=== PATIENT | female | born 1945 | race Caucasian/White ===

== ENCOUNTER → 2019-02-18 | Day surgery (SDC) | payer MEDICARE ==
[2019-02-17 15:01] VITALS: BMI 26.1
[~2019-02-18] MED LIST: Cyclopentolate 1% Opth Drop 2 ML BOT ONE; EPINEPHrine 0.3 MG in Ophthalmic Irrigation Solution 500 ML IV SCH; Fentanyl 100 MCG/2 ML VIAL ONE; Midazolam HCl 2 mg/2 ml Vial ONE; PROPOFOL 20 ML ONE; Phenylephrine 2.5% Ophth Soln 5 ML BOT ONE
--- NOTE | 2019-02-18 12:11 | OP ---
DATE OF PROCEDURE: 02/18/2019 PRINCIPAL PREOPERATIVE DIAGNOSIS: Epiretinal membrane, right eye. POSTOPERATIVE DIAGNOSIS: Epiretinal membrane, right eye. NAME OF PROCEDURES PERFORMED: 1. 25-gauge pars plana vitrectomy, right eye. 2. Epiretinal membrane/internal limiting membrane removal, right eye. ESTIMATED BLOOD LOSS: None. SPECIMENS REMOVED: None. COMPLICATIONS: None. ANESTHESIA: MAC with retrobulbar block. SUMMARY OF OPERATION: The patient was identified in the preoperative holding area, where the correct eye being the right eye was marked for surgery. The patient was taken to the operating room, where MAC anesthesia was induced. A retrobulbar block was administered to the right eye. The block consisted of 1:1 ratio of 4% lidocaine and 0.75% Marcaine. A total of 5 mL was administered. The right eye was then prepped and draped in the usual sterile ophthalmic fashion for surgery. A wire lid speculum was placed. A standard 25-gauge pars plana vitrectomy platform was fashioned with trocars placed approximately 3.5 mm from the limbus. The infusion was noted to be within the vitreous cavity prior to being turned on to the infusion pressure of 30 mmHg. The light pipe and micro vitrector were introduced in the eye under visualization of RESIGHT viewing system. A careful core vitrectomy was performed followed by injection of Kenalog. Subsequently, a gentle posterior vitreous detachment was created followed by completion of peripheral shave vitrectomy. Following vitrectomy, ICG dye was used to stain the internal limiting membrane. Using the [place] ILM forceps and internal limiting membrane/epiretinal membrane complex removal was performed in a circumferential fashion about the fovea. The peel extended approximately 2 disk diameters in radius circumferentially. Following peeling, the micro vitrector was reintroduced in the eye to remove any residual vitreous debris. A 360-degree scleral depressed exam of the periphery revealed no defects. The cannulas were sequentially removed and all sclerotomies were noted to be watertight. The wire lid speculum was removed followed by application of TobraDex ophthalmic ointment and a light patch and shield. The patient tolerated the procedure well and was taken to the outpatient recovery in good condition. Job ID: [id number]
== END ==
LOC: SDC 07:21
PROVIDERS: ATTEND Ophthalmology Retina Specialist
PROC: 08T43ZZ Resection of Right Vitreous, Percutaneous Approach (ICD-10-PCS; principal; 2019-02-18)
PROC: 08NE3ZZ Release Right Retina, Percutaneous Approach (ICD-10-PCS; 2019-02-18)
DX: H35.371 Puckering of macula, right eye (principal); E03.9 Hypothyroidism, unspecified; Z88.8 Allergy status to other drugs, medicaments and biological substances; Z91.018 Allergy to other foods
CPT/HCPCS: J0171; J2250; J2704; J3010

== ENCOUNTER 2021-10-21 04:11 | Inpatient (IN) | payer MEDICARE ==
[2021-10-21 05:57] VITALS: BMI 26.9
[2021-10-21] MEDS ORDERED: Heparin 25,000 units/D5W 500 ML IVPB SCH (06:15)
[2021-10-21 07:13] LABS: Platelet Count 281 thou/uL (130-400)
[2021-10-21] MEDS ORDERED: Ondansetron ODT 4 MG TAB PO PRN (07:15)
[2021-10-21] MEDS ORDERED: Senokot S 8.6-50 MG TAB PO PRN (07:15)
[2021-10-21] MEDS ORDERED: Calcium Carbonate 500 MG ChewTAB PO PRN (07:15)
[2021-10-21] MEDS ORDERED: Ondansetron PF 4 MG/2 ML Vial IVP PRN (07:15)
[2021-10-21] MEDS ORDERED: Bisacodyl 5 MG TAB PO PRN (07:15)
[2021-10-21] MEDS ORDERED: Bisacodyl 10 MG SUPP PR PRN (07:15)
[2021-10-21] MEDS ORDERED: Levothyroxine Sodium 75 MCG TAB PO SCH (07:30)
[2021-10-21 07:52] LABS: #Eosinphils 0.1 thou/uL (0.0-0.7); #Monocytes 0.7 thou/uL (0.11-0.59); #Neutrophils 6.1 thou/uL (1.40-6.50); %Basophils 0.4 % (0.0-1.0); %Lymphocytes 22.2 % (21.0-51.0); %Monocytes 7.8 % (0.0-10.0); %Neutrophils 68.7 % (42.0-75.0); Hemoglobin 11.8 g/dL (12.0-16.0); Mean Corpuscular HGB CONC 33.5 g/dL (32.0-36.0); Mean Corpuscular Hemoglobin 32.5 pg (27.0-31.0); Mean Platelet Volume 6.8 fL (7.4-10.4); Platelet Count 293 thou/uL (130-400); RBC Distribution Width 11.7 % (11.5-14.5); Red Blood Cell (RBC) Count 3.63 mill/uL (4.20-5.40); White Blood Cell (WBC) Count 8.9 thou/uL (4.8-10.8)
[2021-10-21 08:13] LABS: Hemoglobin A1c 5.6 % (4.0-6.0)
[2021-10-21 08:14] LABS: ALT (SGPT) 18 U/L (8-55); AST (SGOT) 37 U/L (5-34); Albumin 4.2 g/dL (3.4-4.8); Alkaline Phosphatase 42 U/L (40-110); Anion Gap 14 mmol/L (10-20); BUN (Urea Nitrogen) 21 mg/dL (9.8-20.1); Bilirubin, Total 0.9 mg/dL (0.2-1.2); Calc. Creatinine Clearance 65 mL/min (70-130); Calcium 9.2 mg/dL (7.8-10.44); Carbon Dioxide 23 mmol/L (23-31); Cardiac Risk 4.5 (Less than 4.5); Chloride 103 mmol/L (98-107); Cholesterol 202 mg/dl (< 200 Desired); Globulin 2.8 g/dL (2.4-3.5); Glucose 114 mg/dL (83-110); HDL Cholesterol 45 mg/dL (>60 Neg Risk); LDL Cholesterol, Calculated 115 mg/dL; Sodium 136 mmol/L (136-145); Triglycerides 209 mg/dL (Less than 150)
[2021-10-21 08:23] LABS: Troponin I 2.512 ng/mL (< 0.028)
[2021-10-21] MEDS: Heparin 10,000 UNITS/ 10 ML VIAL SLOW IVP SCH ×2 (09:19→22:38)
[2021-10-21] MEDS: Famotidine 20 MG TAB PO SCH ×2 (09:20→21:10)
[2021-10-21] MEDS: Famotidine/PF 20 mg/2ml Vial SLOW IVP SCH ×2 (09:20→23:08)
[2021-10-21] MEDS ORDERED: Sodium Chloride 0.9% 1,000 ML IV SCH (09:30)
[2021-10-21 11:04] LABS: Critical Call Chem Troponin I RESULT DECREASING; Troponin I 2.173 ng/mL (< 0.028)
[2021-10-21] MEDS ORDERED: Communication Order-Pharmacy FS SCH (19:00)
[2021-10-21] MEDS: Acetaminophen 325 MG TAB PO PRN (21:10)
[2021-10-21] MEDS: Nitroglycerin 2% Ointment 1 INCH/1 GM Packet TOP SCH (21:10)
[2021-10-21] MEDS: Atorvastatin Calcium 40 MG TAB PO SCH (21:10)
[2021-10-21] MEDS: Metoprolol Tartrate 25 MG TAB PO SCH (21:10)
[2021-10-22 05:04] LABS: #Eosinphils 0.2 thou/uL (0.0-0.7); #Lymphocytes 2.3 thou/uL (1.20-3.40); #Monocytes 0.8 thou/uL (0.11-0.59); #Neutrophils 5.6 thou/uL (1.40-6.50); %Basophils 0.5 % (0.0-1.0); %Eosinophils 1.7 % (0.0-10.0); %Lymphocytes 25.8 % (21.0-51.0); %Monocytes 8.8 % (0.0-10.0); %Neutrophils 63.2 % (42.0-75.0); Hemoglobin 10.8 g/dL (12.0-16.0); Mean Corpuscular Hemoglobin 32.2 pg (27.0-31.0); Mean Corpuscular Volume 97.6 fL (78.0-98.0); Mean Platelet Volume 6.9 fL (7.4-10.4); Platelet Count 299 thou/uL (130-400); RBC Distribution Width 11.9 % (11.5-14.5); Red Blood Cell (RBC) Count 3.37 mill/uL (4.20-5.40); White Blood Cell (WBC) Count 8.9 thou/uL (4.8-10.8)
[2021-10-22] MEDS: Nitroglycerin 2% Ointment 1 INCH/1 GM Packet TOP SCH (05:24)
[2021-10-22] MEDS: Levothyroxine Sodium 75 MCG TAB PO SCH (05:24)
[2021-10-22] MEDS: Metoprolol Tartrate 25 MG TAB PO SCH (05:24)
[2021-10-22 05:26] LABS: ALT (SGPT) 18 U/L (8-55); AST (SGOT) 38 U/L (5-34); Alkaline Phosphatase 41 U/L (40-110); Anion Gap 13 mmol/L (10-20); BUN (Urea Nitrogen) 13 mg/dL (9.8-20.1); Bilirubin, Direct 0.3 mg/dL (0.1-0.3); Bilirubin, Total 0.8 mg/dL (0.2-1.2); Calc. Creatinine Clearance 66 mL/min (70-130); Calcium 8.9 mg/dL (7.8-10.44); Carbon Dioxide 25 mmol/L (23-31); Chloride 105 mmol/L (98-107); Glucose 109 mg/dL (83-110); Magnesium 2.2 mg/dL (1.6-2.6); Potassium 3.8 mmol/L (3.5-5.1); Protein, Total 6.5 g/dL (5.8-8.1); Sodium 139 mmol/L (136-145)
[2021-10-22] MEDS ORDERED: Sodium Chloride 0.9% 1,000 ML IV SCH ×2 (06:00→09:50)
[2021-10-22] MEDS ORDERED: Heparin 10,000 UNITS/ 10 ML VIAL ONE (08:17)
[2021-10-22] MEDS ORDERED: Lidocaine 1% (PF) 30 ML VIAL ONE (08:17)
[2021-10-22] MEDS ORDERED: Fentanyl 100 MCG/2 ML VIAL ONE (09:02)
[2021-10-22] MEDS ORDERED: Midazolam HCl 2 mg/2 ml Vial ONE (09:02)
[2021-10-22] MEDS ORDERED: Protamine Sulfate 50 MG/5 ML VIAL ONE (09:21)
[2021-10-22] MEDS ORDERED: Nitroglycerin 0.4 MG TAB (25 Tab Bottle) SL PRN (09:48)
[2021-10-22] MEDS ORDERED: Sodium Chloride 0.9% 200 ML IV PRN (09:48)
[2021-10-22] MEDS ORDERED: Acetaminophen/Codeine 30-300mg Tablet PO PRN ×2 (09:48)
[2021-10-22] MEDS: Aspirin 81 mg Enteric Coated Tablet PO SCH (10:53)
[2021-10-22] MEDS: Famotidine 20 MG TAB PO SCH ×2 (10:53→21:32)
[2021-10-22] MEDS: Famotidine/PF 20 mg/2ml Vial SLOW IVP SCH ×2 (10:54→19:40)
[2021-10-22] MEDS ORDERED: Iopamidol 370 76% 50 ML VIAL FS ONE (13:26)
[2021-10-22] MEDS ORDERED: Iopamidol 370 76% 100 ML VIAL ONE (13:26)
[2021-10-22] MEDS: Carvedilol 3.125 MG TAB PO SCH (16:55)
[2021-10-22] MEDS: Acetaminophen 325 MG TAB PO PRN (21:32)
[2021-10-22] MEDS: Atorvastatin Calcium 40 MG TAB PO SCH (21:32)
[2021-10-23 04:25] LABS: #Eosinphils 0.1 thou/uL (0.0-0.7); #Lymphocytes 1.5 thou/uL (1.20-3.40); #Monocytes 0.7 thou/uL (0.11-0.59); #Neutrophils 4.7 thou/uL (1.40-6.50); %Basophils 0.6 % (0.0-1.0); %Eosinophils 1.8 % (0.0-10.0); %Lymphocytes 21.6 % (21.0-51.0); %Monocytes 9.9 % (0.0-10.0); %Neutrophils 66.1 % (42.0-75.0); Mean Corpuscular HGB CONC 33.8 g/dL (32.0-36.0); Mean Corpuscular Hemoglobin 32.9 pg (27.0-31.0); Mean Corpuscular Volume 97.2 fL (78.0-98.0); Mean Platelet Volume 7.1 fL (7.4-10.4); Platelet Count 242 thou/uL (130-400); RBC Distribution Width 11.6 % (11.5-14.5); Red Blood Cell (RBC) Count 3.04 mill/uL (4.20-5.40); White Blood Cell (WBC) Count 7.1 thou/uL (4.8-10.8)
[2021-10-23 04:44] LABS: Anion Gap 13 mmol/L (10-20); BUN (Urea Nitrogen) 15 mg/dL (9.8-20.1); Calc. Creatinine Clearance 71 mL/min (70-130); Calcium 8.5 mg/dL (7.8-10.44); Carbon Dioxide 22 mmol/L (23-31); Chloride 106 mmol/L (98-107); Glucose 93 mg/dL (83-110); Magnesium 2.1 mg/dL (1.6-2.6); Potassium 3.6 mmol/L (3.5-5.1); Sodium 137 mmol/L (136-145)
[2021-10-23] MEDS: Levothyroxine Sodium 75 MCG TAB PO SCH (05:38)
[2021-10-23] MEDS: Famotidine 20 MG TAB PO SCH (09:14)
[2021-10-23] MEDS: Famotidine/PF 20 mg/2ml Vial SLOW IVP SCH (09:14)
[2021-10-23] MEDS: Carvedilol 3.125 MG TAB PO SCH (09:14)
[2021-10-23] MEDS: Aspirin 81 mg Enteric Coated Tablet PO SCH (09:14)
[2021-10-23 12:15] VITALS: BP 133/61; TEMP 98.1
== END 2021-10-23 16:29 | disposition home or self-care (01) | DRG 281 ==
LOC: 2NO 04:11 → OBSVTOIN 10-22 11:04
PROVIDERS: ADMIT Student in an Organized Health Care Education/Training Program; ATTEND Internal Medicine
PROC: 4A023N7 Measurement of Cardiac Sampling and Pressure, Left Heart, Percutaneous Approach (ICD-10-PCS; principal; 2021-10-22)
PROC: B2151ZZ Fluoroscopy of Left Heart using Low Osmolar Contrast (ICD-10-PCS; 2021-10-22)
DX: I51.81 Takotsubo syndrome (principal); I21.4 Non-ST elevation (NSTEMI) myocardial infarction; G45.3 Amaurosis fugax; Z23 Encounter for immunization; Z20.822 Contact with and (suspected) exposure to COVID-19; I10 Essential (primary) hypertension; E78.5 Hyperlipidemia, unspecified; D50.9 Iron deficiency anemia, unspecified; E03.9 Hypothyroidism, unspecified; K44.9 Diaphragmatic hernia without obstruction or gangrene; E78.00 Pure hypercholesterolemia, unspecified; I25.10 Atherosclerotic heart disease of native coronary artery without angina pectoris; I08.2 Rheumatic disorders of both aortic and tricuspid valves; I09.89 Other specified rheumatic heart diseases; Z88.8 Allergy status to other drugs, medicaments and biological substances; Z79.890 Hormone replacement therapy; Z79.899 Other long term (current) drug therapy
CPT/HCPCS: 36415; 80048; 80053; 80061; 80076; 83036; 83735; 83880; 84443; 84484; 85014; 85018; 85025; 85049; 85347; 85730; 86850; 86870; 86900; 86901; 86905; 86922; 93005; 93010; 93306; 93458; 96365; 96366; 97139; 99152; G0378; J1644; J2001; J2250; J2720; J3010; J7050; Q9967; U0003; U0005

== ENCOUNTER 2022-02-25 10:04 | Outpatient (CLI) | payer MEDICARE | END 2022-02-25 10:05 | disposition home or self-care (01) | LOC: BICULT 10:04 | PROVIDERS: ATTEND Nurse Practitioner Family | DX: R74.8 Abnormal levels of other serum enzymes (principal); K80.20 Calculus of gallbladder without cholecystitis without obstruction | CPT/HCPCS: 76700 ==